=== PATIENT | female | born 1935 | race Caucasian/White ===

== ENCOUNTER 2016-10-31 16:57 | Inpatient (IN) | payer MEDICARE, BC ==
[~2016-10-31] VITALS: Ht 162.6 cm; Wt 67.2 kg
--- NOTE | ~2016-10-31 | ENPV ---
Vascular Lower Extremities DVT Study Procedure Demographics Patient Name ELROY PERLA Date of Study 10/31/2016 Patient Number [id number] Gender Female Date of 1935 Age 81 Visit Number [id number] Height Accession Number [id number] Weight Room Number G3319 BSA BMI Referring Vicente Condon MD Interpreting Clarence Cameron MD Physician Physician Physician Ordering Physician Vicente Condon MD Customer Field Representative Rhythmic Gymnastics Coach Marisa Holder RVT Conclusions Summary No evidence of deep vein thrombosis or superficial thrombophlebitis in the left lower extremity . Procedure Type of Study: Veins:Lower Extremities DVT Study, Lower Extremity Left. Indications for Study:Pain in Limb. Appropriate Use Criteria:9 Patient Status:Routine. Study Location:Inpatient Portable. Technical Quality:Adequate visualization. Velocities are measured in cm/s ; Diameters are measured in cm Right Lower Extremities DVT Study Measurements Right 2D and Doppler Measurements + + + + +------+------+ + !Location !Visualized!Compressibility!Thrombosis!Signal!Reflux!Reflux ! ! ! ! ! ! ! !(sec) ! + + + + +------+------+ + !Common !Yes !Yes !None ! ! ! ! !Femoral ! ! ! ! ! ! ! + + + + +------+------+ + Left Lower Extremities DVT Study Measurements Left 2D and Doppler Measurements + + + + +------+------+ + !Location !Visualized!Compressibility!Thrombosis!Signal!Reflux!Reflux ! ! ! ! ! ! ! !(sec) ! + + + + +------+------+ + !GSV Thigh !Yes !Yes !None !Phasic!No ! ! + + + + +------+------+ + !Common !Yes !Yes !None !Phasic!No ! ! !Femoral ! ! ! ! ! ! ! + + + + +------+------+ + !Prox !Yes !Yes !None !Phasic!No ! ! !Femoral ! ! ! ! ! ! ! + + + + +------+------+ + !Mid Femoral!Yes !Yes !None !Phasic!No ! ! + + + + +------+------+ + !Dist !Yes !Yes !None !Phasic!No ! ! !Femoral ! ! ! ! ! ! ! + + + + +------+------+ + !Popliteal !Yes !Yes !None !Phasic!No ! ! + + + + +------+------+ + !Gastroc !Yes !Yes !None !Phasic!No ! ! + + + + +------+------+ + !PTV !Yes !Yes !None !Phasic!No ! ! + + + + +------+------+ + !Peroneal !Yes !Yes !None !Phasic!No ! ! + + + + +------+------+ + Signature dtt: KVNG SEAMAN dtjose g: 10/31/16 1904 Physician Self Edit
--- NOTE | ~2016-10-31 | OR ---
PATIENT'S NAME: ELROY PERLA [facility] AGE: 81 Y [address] ROOM: [place] [address] LOCATION: [facility] ADMIT DATE: 10/31/2016 OR/Procedure Report DISCHARGE DATE: FAMILY PHYSICIAN: RIVER MAGALLANES DO ATTENDING PHYSICIAN: JANNA UNNEZ SURGEON: Janna Nunez MD HEMATOLOGY SUPERVISOR: Beau Angel, EDI SPECIALIST/OLDER ADULT SOCIAL WORK SPECIALIST and Janna Florian. 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 Hardware failure (with intrapelvic migration of hardware, trochanteric femoral nail) status post open reduction and internal fixation left hip intertrochanteric fracture. PROCEDURES PERFORMED: Complex primary left total hip arthroplasty with removal left proximal femoral hardware (trochanteric femoral nail and intrapelvic lag screw). ANESTHESIA: General endotracheal anesthesia plus subcutaneous and periarticular local anesthesia (ropivacaine with epinephrine and Toradol). DRAINS: None. SPECIMENS: Culture of intrapelvic hardware (lag screw). Culture of femoral canal soft tissue. Culture of subcutaneous seroma). ESTIMATED BLOOD LOSS: Less than 400 mL. IMPLANTS: Ambar Christian Modular size 19 tapered fluted stem with size 19+ 10 modular proximal cone body, 40 mm metallic femoral head with +5 mm neck length. [place] Trident Tritanium size 54 mm hemispherical uncemented acetabular shell with 1 dome hole cover and no screws. A 40 mm neutral X3 acetabular polyethylene liner. EXPLANTS: Ambar standard Gamma nail with distal interlocking screw and lag screw. INDICATION FOR PROCEDURE: Ms Perla is an 81-year-old female who underwent open reduction and internal fixation of a left hip intertrochanteric fracture in [place] in June. She subsequently returned home to [place] and has been followed by Dr. Hernandez in [place] until last week when x-rays demonstrated an intraarticular migration of the lag screw of the gamma nail. This was associated with significantly increased left hip pain. She was referred to us for management of her complex situation. It should be noted PATIENT'S NAME: ELROY PERLA [facility] AGE: 81 Y [address] ROOM: [place] [address] LOCATION: [facility] ADMIT DATE: 10/31/2016 OR/Procedure Report DISCHARGE DATE: FAMILY PHYSICIAN: RIVER MAGALLANES DO ATTENDING PHYSICIAN: JANNA NUNEZ that her left hip fracture occurred superimposed upon severe preexisting left hip degenerative joint disease. Followup radiographs this week demonstrated that the screw now protrudes into the true pelvis and has migrated over 2 cm further medially compared to last week. Preoperative CT scan demonstrates no intraabdominal free air or definitive visceral damage. The patient is incapacitated by her left hip pain. Risks, benefits, limitations, and alternatives to this procedure have been thoroughly reviewed. We have specifically reviewed risks and implications of infection, deep venous thrombosis, pulmonary embolism, neurovascular complications, blood transfusion risks, wear, loosening, instability, leg length discrepancy, and potential need for further surgery. Informed consent has been granted. DESCRIPTION OF PROCEDURE: The patient placed in a right lateral decubitus position after administration of general endotracheal anesthesia and prophylactic antibiotics. Her pelvis was locked perpendicularly to the floor on a peg board. The right leg was well-padded and an axillary roll was placed. The left hip and left lower extremity were prepped and draped with vigilant sterile technique. The hip was approached through a standard posterolateral incision. A 5 x 4 x 1 cm encapsulated subcutaneous fluid collection was encountered. This contained benign-appearing serosanguineous fluid. The fluid was sent for routine culture. Dissection proceeded down to the iliotibial band and gluteus gregg fascia, which were divided longitudinally in line with the overlying skin incision. The sciatic nerve was identified and vigilantly protected throughout the entire case. The short external rotators and posterior capsule were divided from their respective insertions and tagged with #1 Ethibond sutures for later repair. There was a moderate amount of benign-appearing translucent synovial fluid. Motion was noted at the intertrochanteric fracture interface. Mild motion was also noted between the greater trochanter and the shaft of the proximal femur. The head of the gamma nail was identified and the extraction device was screwed into the proximal aspect of the nail. A 4 mm incision was made distally within the preexisting scar, where the distal interlocking screw had been placed. The distal interlocking screw was removed intact. The defect in the lateral femoral cortex through which the lag screw had been inserted was identified. The screw had migrated superomedially such that only approximately 1 or 2 mm of the lateral aspect of the screw remained within the medial aspect of the intramedullary nail. Fluoroscopic imaging was utilized to thread the extraction device into the lag screw. The lag screw was subsequently backed out with a slap hammer with great care to avoid advancing lag screw further into the pelvis while it was being retrieved. The screw was PATIENT'S NAME: ELROY PERLA [facility] AGE: 81 Y [address] ROOM: [address] [address] LOCATION: [facility] ADMIT DATE: 10/31/2016 OR/Procedure Report DISCHARGE DATE: FAMILY PHYSICIAN: RIVER MAGALLANES DO ATTENDING PHYSICIAN: JANNA NUNEZ sent for culture. There was a mild amount of serosanguineous fluid around the screw. There was no abnormal appearing fluid or malodor. The gamma nail was subsequently extracted and soft tissue adherent to the nail was sent for culture. The hip was posteriorly dislocated. The femoral neck resection was performed with an oscillating saw. There was global full-thickness loss of articular cartilage throughout the femoral head and acetabulum. There was a large osteophyte at the periphery of the femoral head. Circumferential acetabular exposure was obtained. There was no dysplasia. There were no loose bodies. Remnants of the acetabular labrum were excised. The acetabulum was reamed up to a size 53. The size 54 mm hemispherical acetabular shell was impacted into position in 45 degrees of inclination and 20 degrees of anteversion. An excellent press-fit was obtained. A trial neutral 32 inner diameter liner was inserted. Attention was refocused on the proximal femur. The canal was identified and successively larger tapered reamers were utilized up to a size 19. The size 17, 18, and 19 reamers tightly engaged the endosteal cortex of the proximal femur. The 19 mm trial stem was impacted into position and reaming for the proximal body was performed. Trial reductions demonstrated excellent stability and appropriate restitution of leg length and stability. All trial components were removed. The dome hole cover was inserted. The final acetabular liner was impacted into position. It should be noted that there was no abnormal fluid visible within the full- thickness acetabular defect at the midportion of the acetabular dome (the point of penetration of the lag screw). This was thoroughly irrigated prior to impacting the acetabular component into position. The final femoral component was impacted into position and obtained excellent axial and rotational stability. The final proximal body was impacted into position in 20 degrees of anteversion and this obtained excellent axial and rotational stability. The proximal set screw was deployed with the torque-limiting wrench. The trunnion was thoroughly cleansed and dried prior to impacting the femoral head into position. A final reduction was performed after which the hip could not be anteriorly subluxated with firm external rotation in full extension and 0 degrees of abduction. In neutral rotation and 0 degrees of abduction, the hip could be hyperflexed to 120 degrees without instability. At 90 degrees of flexion and PATIENT'S NAME: ELROY PERLA [facility] AGE: 81 Y [address] ROOM: [address] [address] LOCATION: [facility] ADMIT DATE: 10/31/2016 OR/Procedure Report DISCHARGE DATE: FAMILY PHYSICIAN: RIVER MAGALLANES DO ATTENDING PHYSICIAN: JANNA NUNEZ 0 degrees of abduction, the hip could be internally rotated to 45 degrees before there was any hint of posterior subluxation. The entire incision and entire joint space were thoroughly irrigated with bacteriostatic pulsatile saline lavage at this point as well as several times throughout the case. The short external rotators and posterior capsule were repaired through 2 drill holes in the posterior aspect of the greater trochanter. The fascia was closed with multiple simple interrupted and [id number] interrupted #1 Ethibond suture and #1 Vicryl suture. Subcutaneous tissues were thoroughly irrigated and subsequently reapproximated with simple deep interrupted 0 Vicryl. The skin was closed with superficial buried interrupted 2-0 Vicryl, followed by a running subcuticular 3-0 Monocryl suture, followed by Dermabond, followed by Steri-Strips with benzoin. The dressing consisted of an occlusive Mepilex dressing. The patient was extubated and transported to the post anesthesia care unit in stable, comfortable condition. She was noted to be neurovascularly intact in the recovery room. There were no complications. Of note, the operating room positive pressure air handling unit malfunctioned shortly after the incision was made and did not function again until the time of wound closure. Traffic was kept to an absolute minimum in the room throughout the case. MD HERSNO ALFARO/modl /[id number] d: 11/02/16322 t: 11/17/162033, OPERATIVE SUMMARY
--- NOTE | ~2016-10-31 | DS ---
PATIENT'S NAME: ELROY PERLA [facility] AGE: 81 Y [address] ROOM: [place] [address] LOCATION: [facility] ADMIT DATE: 10/31/2016 Discharge Summary DISCHARGE DATE: 11/02/2016 FAMILY PHYSICIAN: Vitor Hensley DO ATTENDING PHYSICIAN: Ron Zhang PRIMARY DIAGNOSIS: Failed intramedullary nail, left hip and failed open reduction internal fixation of left hip. SECONDARY DIAGNOSES: 1. Previous intertrochanteric fracture. 2. Degenerative joint disease of left hip. 3. Hypertension. 4. Hyperlipidemia. PROCEDURE PERFORMED: Removal of hardware of left hip and left total hip arthroplasty. HISTORY: The patient is an 81-year-old female, who presents with advanced left hip degenerative joint disease and associated severely compromised activities of daily living. The patient has decided to proceed with total left hip arthroplasty after having been thoroughly counseled regarding the risks, benefits, limitations, and alternatives. Please refer to the outpatient clinic notes and admission history and physical for this patient. HOSPITAL COURSE: The patient underwent a total left hip arthroplasty on 11/01/2016 without complications. General endotracheal anesthesia plus subcutaneous and periarticular local anesthesia was utilized. The patient received 24 hours of perioperative prophylactic antibiotics and remained hemodynamically stable, neurovascularly intact throughout the entire hospital course. The postoperative prophylactic deep venous thrombosis prophylaxis consisted of Xarelto, early mobilization and pneumatic compression devices. Daily physical therapy for gait training, transfer training, and reinforcement of hip dislocation precautions were received. The patient progressed well in physical therapy. On the date of discharge, 11/02/2016, the incision at the hip was healing well and showed no signs of infection. DISPOSITION: Home. DISCHARGE ACTIVITY: The patient is to bear weight as tolerated with strict hip dislocation precautions as instructed. There are to be no dressing changes. Dr. Zhang is to be notified immediately if there is any increased pain, fevers, chills, erythema, or drainage. DISCHARGE MEDICATIONS: PATIENT'S NAME: ELROY PERLA [facility] AGE: 81 Y [address] ROOM: [place] [address] LOCATION: [facility] ADMIT DATE: 10/31/2016 Discharge Summary DISCHARGE DATE: 11/02/2016 FAMILY PHYSICIAN: Vitor Hensley DO ATTENDING PHYSICIAN: Ron Zhang 1. Xarelto 10 mg, 1 tablet daily for 12 days for postoperative DVT prophylaxis. 2. Hope 5/325 mg 1 to 2 tablets p.o. every 4 hours p.r.n. for pain. She was then instructed to continue all of her other preadmission medications as instructed by her internal medicine doctor. FOLLOWUP: Followup appointment is to be with Dr. Zhang's office on 11/08/2016 for her initial postoperative evaluation. LENNOX REVELES PA-C FOR MD LM ALFARO/aidee /[id number] d: 11/12/163 t: 11/23/16 2202, DISCHARGE SUMMARY
[2016-10-31] MEDS ORDERED: AMOXICILLIN500 M1 PO (18:17)
[2016-10-31] MEDS ORDERED: VERAPAMIL ER180 M1 PO (18:18)
[2016-10-31] MEDS ORDERED: ADVIL200 MG PO (18:19)
[2016-10-31] MEDS ORDERED: ULTRAM50 MG PO (18:19)
[2016-10-31] MEDS ORDERED: VITAMIN D-40400 UNIT PO (18:20)
[2016-10-31] MEDS ORDERED: TURMERIC500 MG PO (18:20)
[2016-11-02 06:34] LABS: HEMATOCRIT 28.7 % (30.0-46.0); HEMOGLOBIN 9.7 g/dL (10.0-15.0)
[2016-11-02] MEDS ORDERED: COLACE100 MG PO (14:41)
[2016-11-02] MEDS ORDERED: MIRALAX17 GM PO (14:43)
[2016-11-02] MEDS ORDERED: NORCO 5-325 TA1 EACH PO (14:45)
[2016-11-02] MEDS ORDERED: XARELTO10 MG PO (14:45)
== END 2016-11-02 18:05 | disposition disaster alternative care site (69) | DRG 470 ==
LOC: G3N 16:57 → EDBD 17:00 → G3N 17:18
PROVIDERS: ADMIT Orthopaedic Surgery
PROC: 0SPB04Z Removal of Internal Fixation Device from Left Hip Joint, Open Approach (ICD-10-PCS; principal; 2016-11-01)
PROC: 0SRB02A Replacement of Left Hip Joint with Metal on Polyethylene Synthetic Substitute, Uncemented, Open Approach (ICD-10-PCS; principal; 2016-11-01)
DX: T84.091A Other mechanical complication of internal left hip prosthesis, initial encounter (principal); M96.842 Postprocedural seroma of a musculoskeletal structure following a musculoskeletal system procedure; I10 Essential (primary) hypertension; S72.142K Displaced intertrochanteric fracture of left femur, subsequent encounter for closed fracture with nonunion; M16.12 Unilateral primary osteoarthritis, left hip; E78.5 Hyperlipidemia, unspecified; W19.XXXD Unspecified fall, subsequent encounter
CPT/HCPCS: C1713; C1776; J0690; J1100; J1170; J1885; J2250; J2405; J2795; J3010; J7030; J7120